=== PATIENT | female | born 1945 | race Caucasian/White ===

== ENCOUNTER → 2017-01-28 | Outpatient (CLI) | payer OTHER, BC ==
[~2017-01-28] MED LIST: ACT/35 PO; ALBU1AER9 INH; BECL0.3A INH; CIPR1TAB10 PO; DOCU100C31 PO; HYDR200T5 PO; MELO7.5T5 PO; METO25TA56 PO; MULT-506 PO; OXYC1TAB3 PO; PRLSR20 PO; PROM25TA9 PO; VOLTAREN GEL TOP
== END | disposition home or self-care (01) ==
LOC: C.LABPVFM 15:13
PROVIDERS: ATTEND Family Medicine
DX: R19.7 Diarrhea, unspecified (principal)

== ENCOUNTER → 2017-11-04 | Outpatient (CLI) | payer OTHER, BC ==
[~2017-11-04] MED LIST changes: -CIPR1TAB10 PO; -OXYC1TAB3 PO; -PROM25TA9 PO
--- NOTE | 2017-11-05 15:30 | MAMMOGRAPHY REPORT ---
BILATERAL DIGITAL SCREENING MAMMOGRAM TOMOSYNTHESIS WITH CAD: 11/04/2017 CLINICAL HISTORY: Routine screening. Patient has no complaints. TECHNIQUE: Breast tomosynthesis in addition to standard 2D mammography was performed. Current study was also evaluated with a Computer Aided Detection (CAD) system. COMPARISON: Comparison is made to exams dated: 02/12/2013 mammogram, 11/05/2011 mammogram - [facility], 04/04/2009, 05/19/2007, 11/06/2006, and 11/06/2006. BREAST COMPOSITION: The tissue of both breasts is almost entirely fatty. FINDINGS: No suspicious mass, architectural distortion or cluster of microcalcifications is seen. T here is stable asymmetry in the medial left breast. Minimal vascular calcification bilaterally. IMPRESSION: ACR BI-RADS CATEGORY 1: NEGATIVE There is no mammographic evidence of malignancy. A 1 year screening mammogram is recommended. The pa tient will receive written notification of the results. Approximately 10% of breast cancers are not detected with mammography. A negative mammographic report should not delay biopsy if a clinically suggestive mass is present. Amisha Russo M.D. ay/:11/04/2017 14:41:25 Pharmacy Consultant: Bozena GUPTA)([place]), [facility] letter sent: Normal 1/2 BI-RADS Code: ACR BI-RADS Category 1: Negative
== END | disposition home or self-care (01) ==
LOC: C.MAMM 13:36
PROVIDERS: ATTEND Family Medicine
DX: Z12.31 Encounter for screening mammogram for malignant neoplasm of breast (principal)

== ENCOUNTER → 2018-02-09 | Outpatient (CLI) | payer OTHER, BC | END | disposition home or self-care (01) | LOC: C.RDSM 16:50 | PROVIDERS: ATTEND Family Medicine Sports Medicine | DX: M79.641 Pain in right hand (principal) ==

== ENCOUNTER → 2018-02-11 | Outpatient (CLI) | payer OTHER, BC ==
[2018-02-12 07:26] LABS: HEMOGLOBIN A1C 4.9 % (4.5-5.6)
== END | disposition home or self-care (01) ==
LOC: C.LABPVFM 09:58
PROVIDERS: ATTEND Family Medicine
DX: E78.00 Pure hypercholesterolemia, unspecified (principal); R73.01 Impaired fasting glucose

== ENCOUNTER → 2018-05-27 | Outpatient (CLI) | payer OTHER, BC ==
[~2018-05-27] MED LIST changes: -ACT/35 PO; +ALBU18002; -ALBU1AER9 INH; -BECL0.3A INH; +CALC500C70 PO; +DNSIS60 SQ; -DOCU100C31 PO; +FOLI1TAB8 PO; -HYDR200T5 PO; +METH1INJ SQ; -PRLSR20 PO; +VNTHFA/IN INH; -VOLTAREN GEL TOP; +[UNRECOGNIZED DRUG - CODE]
[2018-05-27 12:58] LABS: BASO % 0.4 %; BASO ABS # 0.02 K/uL (0-0.2); EOS % 10.2 %; EOS ABS # 0.57 K/uL (0-0.5); HEMATOCRIT 41.2 % (37-47); HEMOGLOBIN 13.9 g/dL (12.0-16.0); IG# 0.02 K/uL (0.00-0.02); LYMPH % 10.9 %; LYMPH ABS # 0.61 K/uL (1.2-3.4); MEAN CELL VOLUME 93.6 fL (80-100); MEAN CORPUSCULAR HEMOGLOBIN 31.6 pg (25-34); MEAN CORPUSCULAR HGB CONC 33.7 g/dl (32-36); MEAN PLATELET VOLUME 10.4 fL (7.4-10.4); MONO % 8.2 %; MONO ABS # 0.46 K/uL (0.11-0.59); NEUT % 69.9 %; NEUT ABS # 3.91 K/uL (1.4-6.5); PLATELET COUNT 160 K/uL (130-400); RED CELL DISTRIBUTION WIDTH CV 13.2 % (11.5-14.5); RED CELL DISTRIBUTION WIDTH SD 45.1 fL (36.4-46.3); WHITE BLOOD COUNT 5.59 K/uL (4.8-10.8)
[2018-05-27 13:33] LABS: ALBUMIN 3.7 gm/dl (3.4-5.0); ALKALINE PHOSPHATASE 57 U/L (45-117); ALT/SGPT 21 U/L (12-78); AST/SGOT 24 U/L (15-37); CREATININE 0.83 mg/dl (0.60-1.20); TOTAL PROTEIN 6.9 gm/dl (6.4-8.2)
== END | disposition home or self-care (01) ==
LOC: C.LABPVFM 09:27
PROVIDERS: ATTEND Internal Medicine
DX: M05.79 Rheumatoid arthritis with rheumatoid factor of multiple sites without organ or systems involvement (principal); Z79.899 Other long term (current) drug therapy; E55.9 Vitamin D deficiency, unspecified

== ENCOUNTER 2019-11-02 16:36 | Observation (INO) ==
[2019-11-02] MEDS ORDERED: NITROGLYCERIN SL 0.4 MG/TAB TAB SL STA (18:45)
[2019-11-02 19:06] LABS: Basophils # (auto) 0.02 K/uL (0-0.2); Basophils % (auto) 0.2 %; Eosinophils # (auto) 0.11 K/uL (0-0.5); Eosinophils % (auto) 0.9 %; Hemoglobin 15.4 g/dL (12.0-16.0); Immature Granulocytes # (auto) 0.09 K/uL (0.00-0.02); Immature Granulocytes % (auto) 0.7 %; Lymphocytes # (auto) 0.82 K/uL (1.2-3.4); Lymphocytes % (auto) 6.5 %; Mean Corpuscular Hemoglobin 32.1 pg (25-34); Mean Corpuscular Hgb Conc 32.8 g/dL (32-36); Mean Corpuscular Volume 97.9 fL (80-100); Mean Platelet Volume 10.1 fL (7.4-10.4); Monocytes % (auto) 4.7 %; Neutrophils # (auto) 11.06 K/uL (1.4-6.5); Platelet Count 224 K/uL (130-400); RDW Coefficient of Variation 13.9 % (11.5-14.5); RDW Standard Deviation 48.9 fL (36.4-46.3)
[2019-11-02 19:12] LABS: Alanine Aminotransferase 23 U/L (12-78); Albumin Level 3.9 gm/dl (3.4-5.0); Aspartate Aminotransferase 14 U/L (15-37); BUN Creatinine Ratio 22.1 (10-20); Blood Urea Nitrogen 20 mg/dl (7-18); Calcium 9.3 mg/dl (8.5-10.1); Carbon Dioxide 29 mmol/L (21-32); Chloride 105 mmol/L (98-107); Creatinine Clr Calc Pharmacy 55.7 ml/min; Est GFR (Non-African American) 64.7; Glucose 114 mg/dl (70-99); Lipase 54 U/L (73-393); Potassium 3.8 mmol/L (3.5-5.1); Sodium 139 mmol/L (136-145)
--- NOTE | 2019-11-02 19:14 | XRay Report ---
XR chest 1V portable CLINICAL HISTORY: Chest Pain COMPARISON STUDY: 11/02/2019 3:40 PM FINDINGS: Lungs are clear. Fixed hiatal hernia. Trace fluid left lateral costophrenic angle unchanged from the prior study IMPRESSION: Hiatal hernia. Trace fluid left base. No change from the prior study. ACT 112: Negative or not required by law. The above report was generated using voice recognition software. It may contain grammatical, syntax or spelling errors. Electronically signed by: Danyel Fuentes M.D. 11/02/2019 7:12 PM
[2019-11-02 19:15] LABS: D Dimer 740 ug/L FEU (0-500)
[2019-11-02 19:17] LABS: Albumin Globulin Ratio 0.9 (0.9-2); Alkaline Phosphatase 85 U/L (45-117); Bilirubin,Total 0.5 mg/dl (0.2-1); Globulin 4.2 gm/dl (2.5-4.0); Total Protein 8.1 gm/dl (6.4-8.2); Troponin I < 0.015 ng/ml (0-0.045)
[2019-11-02] MEDS ORDERED: OPTIRAY 320 125ml IV PRN (20:09)
--- NOTE | 2019-11-02 20:18 | CT Scan Report ---
CT angio chest PE protocol CT DOSE: 244.37 mGy.cm HISTORY: Chest pain PE TECHNIQUE: Multiaxial CT images of the chest were performed following the intravenous administration of contrast to evaluate the pulmonary arteries. Maximal intensity projection images were also obtaine d. A dose lowering technique was utilized adhering to the principles of ALARA. COMPARISON STUDY: 05/25/2015 FINDINGS: Pulmonary vasculature enhances appropriately. No filling defects. Thoracic aorta is normal in course and caliber. Large fixed hiatal hernia. Lungs are considered generally clear. IMPRESSION: 1. Lungs are clear. 2. No evidence for pulmonary embolus. 3. Large fixed hiatal hernia. ACT 112: Negative or not required by law. The above report was generated using voice recognition software. It may contain grammatical, syntax or spelling errors. Electronically signed by: Danyel Fuentes M.D. 11/02/2019 8:16 PM
[2019-11-02] MEDS ORDERED: KETOROLAC 30 MG/ML VIAL IV STA (20:56)
--- NOTE | 2019-11-02 23:01 | Emergency Department Note ---
Entered by Lashaun Faria acting as a scribe for History of Present Illness General Chief complaint: Chest Pain Stated complaint: CHEST PAIN, SOB, SHOULDER PAIN Time Seen by Provider: 11/02/19 18:10 History of Present Illness Provider complaint: chest pain Onset (ago): day(s) 3 Location: chest Pain Consistency: + intermittent Maximum Pain Intensity: 7 Exacerbated By: + movement and + other (lying flat, breathing deeply) Associated symptoms: + denies other symptoms (swelling in legs, recent long travel ), + diaphoresis and + other (pain started in left shoulder and then radiated into chest, has not slept in 3 days, ); no nausea/vomiting The patient is a 74 year old white female w/ PMHx of COPD, anemia, HTN, sciatica, RA, and hypercholesteremia who presents to the ED w/ CC of intermittent chest pain beginning 3 days ago. The patient states that her pain started in her left shoulder and then eventually radiated into her chest. The patient states that she has not slept in 3 days secondary to the discomfort. The patient states that her pain is exacerbated by movement, lying flat and taking a deep breath. The patient notes that she will also occasionally become diaphoretic. The patient denies nausea, vomiting, swelling in her legs and recent long travel. The patient notes that she is currently on Prednisone to treat 6 months worth of sciatica. Home Medications Home Medications Medication Instructions Recorded Confirmed Type methotrexate (PF) 1 dose SUBCUT WK 07/20/18 11/02/19 History multivitamin 1 tab PO DAILY 07/20/18 11/02/19 History denosumab 60 mg/mL subcutaneous 60 mg SQ .COMPLEX ml 05/29/19 11/02/19 History syringe meloxicam 15 mg tablet 15 mg PO DAILY #90 tab 06/01/19 11/02/19 Rx metoprolol tartrate 25 mg tablet 12.5 mg PO BID #180 tab 06/01/19 11/02/19 Rx amoxicillin 500 mg tablet 2,000 mg PO ONCE #4 tab 10/08/19 11/02/19 Rx albuterol sulfate 90 mcg/actuation See Rx Instructions .ROUTE 11/02/19 11/02/19 Rx aerosol inhaler .COMPLEX #8.5 gram cholecalciferol (vitamin D3) 4,000 4,000 units PO DAILY 11/02/19 11/02/19 History unit capsule methylprednisolone [Medrol] 8 mg PO .TAPER UD 11/02/19 11/02/19 History Allergies Allergy/AdvReac Type Severity Reaction Status Date / Time Bactrim Allergy Severe anaphylaxis Verified 05/21/18 06:39 Sulfa (Sulfonamide Allergy Severe anaphylaxis Verified 11/02/19 15:06 Antibiotics) sulfamethoxazole Allergy Severe anaphylaxis Verified 11/02/19 15:06 trimethoprim Allergy Severe anaphylaxis Verified 11/02/19 15:06 acetaminophen Allergy Mild GI Verified 11/02/19 15:06 SYMPTOMS AND DIZZINESS lactose Allergy Unknown gi upset Verified 11/02/19 15:06 with milk or milk products Past Med/Surg History Medical History Anemia Chronic obstructive pulmonary disease LAST RESCUE INHALER USED (LAST WEEK) Dry eye syndrome Hiatal hernia Hypercholesteremia (Acute) Hypertension Low back pain (Chronic) Osteoarthritis Rheumatoid arthritis Sciatica Surgical History H/O exploratory laparotomy INTESTINAL SURGERY ([address] 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 and A total of 10 systems reviewed and were otherwise negative Physical Exam Vital Signs Vital Signs - 24 hr 11/02/19 16:44 11/02/19 18:01 11/02/19 18:04 Temperature 37.0 C Temperature Source Oral Pulse Rate 103 H 81 Pulse Rate from SpO2 Sensor 81 Respiratory Rate 22 23 Blood Pressure 172/78 H Blood Pressure Mean 109 Blood Pressure Position Sitting Pulse Oximetry 99 98 98 Oxygen Delivery Method Room Air Room Air Sepsis Recent Fever Within 48 Hours No Sepsis New/Unexplained Change in Mental Status No Sepsis Action Taken by Nursing No Action Required 11/02/19 18:10 11/02/19 18:20 11/02/19 18:30 Temperature Temperature Source Pulse Rate 81 83 74 Pulse Rate from SpO2 Sensor 81 84 75 Respiratory Rate 23 15 19 Blood Pressure Blood Pressure Mean Blood Pressure Position Pulse Oximetry 98 97 98 Oxygen Delivery Method Sepsis Recent Fever Within 48 Hours Sepsis New/Unexplained Change in Mental Status Sepsis Action Taken by Nursing 11/02/19 18:40 11/02/19 18:50 11/02/19 18:57 Temperature Temperature Source Pulse Rate 81 85 80 Pulse Rate from SpO2 Sensor 82 81 Respiratory Rate 22 25 H Blood Pressure 185/83 H Blood Pressure Mean 104 Blood Pressure Position Pulse Oximetry 98 97 100 Oxygen Delivery Method Room Air Sepsis Recent Fever Within 48 Hours Sepsis New/Unexplained Change in Mental Status Sepsis Action Taken by Nursing 11/02/19 19:00 11/02/19 19:01 11/02/19 19:10 Temperature Temperature Source Pulse Rate 98 H 90 84 Pulse Rate from SpO2 Sensor 97 H 90 83 Respiratory Rate 20 22 20 Blood Pressure 138/85 Blood Pressure Mean 92 Blood Pressure Position Pulse Oximetry 98 97 98 Oxygen Delivery Method Sepsis Recent Fever Within 48 Hours Sepsis New/Unexplained Change in Mental Status Sepsis Action Taken by Nursing 11/02/19 19:15 11/02/19 19:20 11/02/19 19:30 Temperature Temperature Source Pulse Rate 78 77 77 Pulse Rate from SpO2 Sensor 78 81 77 Respiratory Rate 21 21 20 Blood Pressure 155/88 H 151/82 H Blood Pressure Mean 111 101 Blood Pressure Position Pulse Oximetry 100 97 98 Oxygen Delivery Method Sepsis Recent Fever Within 48 Hours Sepsis New/Unexplained Change in Mental Status Sepsis Action Taken by Nursing 11/02/19 19:31 11/02/19 19:40 11/02/19 19:46 Temperature Temperature Source Pulse Rate 77 74 76 Pulse Rate from SpO2 Sensor 79 74 76 Respiratory Rate 17 19 21 Blood Pressure 152/74 H Blood Pressure Mean 89 Blood Pressure Position Pulse Oximetry 99 99 99 Oxygen Delivery Method Sepsis Recent Fever Within 48 Hours Sepsis New/Unexplained Change in Mental Status Sepsis Action Taken by Nursing 11/02/19 19:50 11/02/19 20:13 11/02/19 20:30 Temperature Temperature Source Pulse Rate 73 76 75 Pulse Rate from SpO2 Sensor 72 75 Respiratory Rate 17 21 18 Blood Pressure 167/89 H Blood Pressure Mean 128 Blood Pressure Position Pulse Oximetry 100 100 Oxygen Delivery Method Sepsis Recent Fever Within 48 Hours Sepsis New/Unexplained Change in Mental Status Sepsis Action Taken by Nursing 11/02/19 21:00 11/02/19 21:14 11/02/19 21:20 Temperature Temperature Source Pulse Rate 75 80 77 Pulse Rate from SpO2 Sensor Respiratory Rate 19 18 16 Blood Pressure 162/91 H Blood Pressure Mean 114 Blood Pressure Position Pulse Oximetry 98 Oxygen Delivery Method Sepsis Recent Fever Within 48 Hours Sepsis New/Unexplained Change in Mental Status Sepsis Action Taken by Nursing 11/02/19 21:30 11/02/19 21:40 11/02/19 21:50 Temperature Temperature Source Pulse Rate 73 72 74 Pulse Rate from SpO2 Sensor 73 74 Respiratory Rate 14 16 16 Blood Pressure Blood Pressure Mean Blood Pressure Position Pulse Oximetry 98 98 Oxygen Delivery Method Sepsis Recent Fever Within 48 Hours Sepsis New/Unexplained Change in Mental Status Sepsis Action Taken by Nursing 11/02/19 22:00 11/02/19 22:01 11/02/19 22:02 Temperature Temperature Source Pulse Rate 72 72 76 Pulse Rate from SpO2 Sensor Respiratory Rate 21 22 19 Blood Pressure 175/87 H Blood Pressure Mean 103 Blood Pressure Position Pulse Oximetry 98 Oxygen Delivery Method Sepsis Recent Fever Within 48 Hours Sepsis New/Unexplained Change in Mental Status Sepsis Action Taken by Nursing 11/02/19 22:10 11/02/19 22:20 11/02/19 22:30 Temperature Temperature Source Pulse Rate 86 74 75 Pulse Rate from SpO2 Sensor Respiratory Rate 20 24 21 Blood Pressure Blood Pressure Mean Blood Pressure Position Pulse Oximetry Oxygen Delivery Method Sepsis Recent Fever Within 48 Hours Sepsis New/Unexplained Change in Mental Status Sepsis Action Taken by Nursing 11/02/19 22:31 11/02/19 22:40 11/02/19 22:50 Temperature Temperature Source Pulse Rate 75 74 77 Pulse Rate from SpO2 Sensor Respiratory Rate 23 19 16 Blood Pressure 193/93 H Blood Pressure Mean 152 Blood Pressure Position Pulse Oximetry 98 Oxygen Delivery Method Sepsis Recent Fever Within 48 Hours Sepsis New/Unexplained Change in Mental Status Sepsis Action Taken by Nursing 11/02/19 22:57 Temperature Temperature Source Pulse Rate Pulse Rate from SpO2 Sensor Respiratory Rate Blood Pressure Blood Pressure Mean Blood Pressure Position Pulse Oximetry Oxygen Delivery Method Room Air Sepsis Recent Fever Within 48 Hours Sepsis New/Unexplained Change in Mental Status Sepsis Action Taken by Nursing GENERAL: Well appearing, well nourished, NAD, non-toxic. EYE EXAM: Normal conjunctiva. PERRL, no anisocoria and EOM's grossly intact w/o pain. OROPHARYNX: Moist mucous membranes. Grossly normal dentition. NECK: Supple, no nuchal rigidity, no adenopathy, non-tender. No signs of men ingismus. CHEST: Reproducible left chest wall pain. LUNGS: Clear to auscultation. Normal chest wall mechanics. HEART: NSR, no MRG. ABDOMEN: Abdomen soft, non-tender, normo-active bowel sounds, no masses, no rebound or guarding. SKIN: No rashes and no bruising. UPPER EXTREMITIES: Upper extremities are grossly normal. LOWER EXTREMITIES: Negative Homans sign. No pitting edema. No calf pain. NEURO EXAM: A&O x3, cranial nerves II-XII grossly intact, normal speech, moves all 4 extremities on command w/o issue. Course Course 1822: Past medical records reviewed. The patient was seen by PCP today and was referred here for EKG changes and chest pain. The patient received 4 Aspirin en route. The patient was evaluated in room A11B. A complete history and physical exam was performed. 1830: The patient was put on a phototypesetting equipment monitor at this time. 1940: I updated the patient and informed her as to why were are going to do a CTA. The patient states that the Nitroglycerin did not help her pain. The patient states that she still had a headache but she does not want any medication for it. 2051: I updated the patient on the plan for admission. She verbally agrees and understands. 2154: I discussed the patient's case with Dr. Hernandez [facility], Hospitalist. He will evaluate the patient for further management. Consultations Consultation #1: I discussed the patient's case with Dr. Hernandez [facility], Hospitalist. He will evaluate the patient for further management. Time: 21:55 Administered Medications Ioversol (Optiray 320 125ml) 118 ml IV ONCE PRN PRN Reason: Interaction Checking Stop: 11/06/19 20:08 Last Admin: 11/02/19 20:09 Dose: 118 ml Documented by: [id number] Discontinued Medications Ketorolac Tromethamine (Toradol) 30 mg IV NOW STA Stop: 11/02/19 20:57 Last Admin: 01/07/20 21:01 Dose: 30 mg Documented by: [id number] Nitroglycerin (Nitrostat) 0.4 mg SL NOW STA Stop: 11/02/19 18:46 Last Admin: 11/02/19 18:57 Dose: 0.4 mg Documented by: [id number] Medical Decision Making Differential Diagnosis Differential diagnosis: Etiologies such as shingles, musculoskeletal pain, pericarditis, myocarditis, cardiac ischemia, pericardial tamponade, pneumonia, pneumothorax, pleural effusion, hemothorax, pleurisy, aortic pathology, pulmonary embolism, intra- abdominal process, as well as others were considered. Medical Records Attestation: I reviewed the patient's medical records. Home Medications Current Medication List: was personally reviewed by me Laboratory Data Attestation: I reviewed the patient's lab results. Result diagrams: 11/02/19 18:05 11/02/19 18:05 Lab Results 11/02/19 11/02/19 11/02/19 Range/Units 18:05 18:05 18:05 WBC 12.70 H (4.8-10.8) K/uL RBC 4.80 (4.2-5.4) M/uL Hgb 15.4 (12.0-16.0) g/dL Hct 47.0 (37-47) % MCV 97.9 (80-100) fL MCH 32.1 (25-34) pg MCHC 32.8 (32-36) g/dL RDW Std Deviation 48.9 H (36.4-46.3) fL RDW Coeff of Stephanie 13.9 (11.5-14.5) % Plt Count 224 (130-400) K/uL MPV 10.1 (7.4-10.4) fL Immature Gran % (Auto) 0.7 % Neut % (Auto) 87.0 % Lymph % (Auto) 6.5 % Bureau % (Auto) 4.7 % Eos % (Auto) 0.9 % Baso % (Auto) 0.2 % Immature Gran # (Auto) 0.09 H (0.00-0.02) K/uL Neut # (Auto) 11.06 H (1.4-6.5) K/uL Lymph # (Auto) 0.82 L (1.2-3.4) K/uL Bureau # (Auto) 0.60 H (0.11-0.59) K/uL Eos # (Auto) 0.11 (0-0.5) K/uL Baso # (Auto) 0.02 (0-0.2) K/uL D-Dimer 740 H* (0-500) ug/L FEU Sodium 139 (136-145) mmol/L Potassium 3.8 (3.5-5.1) mmol/L Chloride 105 (98-107) mmol/L Carbon Dioxide 29 (21-32) mmol/L Anion Gap 5.0 (3-11) BUN 20 H (7-18) mg/dl Creatinine 0.89 (0.6-1.2) mg/dl Est Cr Clr Drug Dosing 55.7 ml/min Est GFR ( Amer) 75.0 Est GFR (Non-Af Amer) 64.7 BUN/Creatinine Ratio 22.1 H (10-20) Glucose 114 H (70-99) mg/dl Calcium 9.3 (8.5-10.1) mg/dl Total Bilirubin 0.5 (0.2-1) mg/dl AST 14 L (15-37) U/L ALT 23 (12-78) U/L Alkaline Phosphatase 85 (45-117) U/L Troponin I < 0.015 (0-0.045) ng/ml Total Protein 8.1 (6.4-8.2) gm/dl Albumin 3.9 (3.4-5.0) gm/dl Globulin 4.2 H (2.5-4.0) gm/dl Albumin/Globulin Ratio 0.9 (0.9-2) Lipase 54 L (73-393) U/L Imaging Data Radiologist's Impression: Radiology results as stated below per my review and the radiologist's interpretation: XR chest 1V portable CLINICAL HISTORY: Chest Pain COMPARISON STUDY: 11/02/2019 3:40 PM FINDINGS: Lungs are clear. Fixed hiatal hernia. Trace fluid left lateral costophrenic angle unchanged from the prior study IMPRESSION: Hiatal hernia. Trace fluid left base. No change from the prior study. ACT 112: Negative or not required by law. The above report was generated using voice recognition software. It may contain grammatical, syntax or spelling errors. Electronically signed by: Danyel Fuentes M.D. 11/02/2019 7:[address] angio chest PE protocol CT DOSE: 244.37 mGy.cm HISTORY: Chest pain PE TECHNIQUE: Multiaxial CT images of the chest were performed following the intravenous administration of contrast to evaluate the pulmonary arteries. Maximal intensity projection images were also obtained. A dose lowering technique was utilized adhering to the principles of ALARA. COMPARISON STUDY: 05/25/2015 FINDINGS: Pulmonary vasculature enhances appropriately. No filling defects. Thoracic aorta is normal in course and caliber. Large fixed hiatal hernia. Lungs are considered generally clear. IMPRESSION: 1. Lungs are clear. 2. No evidence for pulmonary embolus. 3. Large fixed hiatal hernia. ACT 112: Negative or not required by law. The above report was generated using voice recognition software. It may contain grammatical, syntax or spelling errors. Electronically signed by: Danyel Fuentes M.D. 11/02/2019 8:16 PM OUTPATIENT CHEST X-RAY DONE PRIOR TO ARRIVAL: XR chest 2V PA/lateral CLINICAL HISTORY: 74 years-old Female presenting with R07.9 Chest pain, unspecified. TECHNIQUE: PA and lateral views of the chest were obtained. COMPARISON: 08/29/2016. FINDINGS: Cardiomediastinal silhouette normal. Lungs and pleural spaces clear. Degenerative changes of the thoracic spine. Large hiatal hernia. Chronic blunting of the costophrenic sulci on the left. Cholecystectomy clips noted. IMPRESSION: 1. No acute cardiopulmonary disease. 2. Large hiatal hernia. ACT 112: Negative or not required by law. Electronically signed by: Paulo Mayo M.D. 11/02/2019 3:57 PM ECG Data Attestation: I personally reviewed and interpreted this ECG as follows: Indication: + chest pain Rate (beats per minute): 98 Rhythm: + normal sinus ECG Intervals/blocks: + Normal QRS, + Normal MO and + Normal QT-c ECG [place]: + Normal ECG ST segments: no ST depression and no ST elevation ECG Findings: no PACs and no PVCs Blood Pressure Blood Pressure Findings: Elevated blood pressure Blood Pressure Disposition: further management by hospitalist STACEY Guaman The patient is a 74 year old white female w/ PMHx of COPD, anemia, HTN, sciatica, RA, and hypercholesteremia who presents to the ED w/ CC of intermittent chest pain beginning 3 days ago. Patient was seen in eval at the bedside. The patient did present as a referral from outpatient clinic due to concern for possible EKG changes. I did review the EKG and does not look overall very impressive but a repeat EKG was completed which looks fairly unremarkable. Patient's troponin is nondetectable. Patient did have a chest x-ray completed that shows a hiatal hernia. D-dimer was checked and given the pleuritic nature and the fact that is left-sided around the arm neck and jaw. Patient CT angios only shows a hiatal hernia but no evidence of PE. No evidence of aneurysm or dissection or pericardial effusion. Patient does have moderate risk heart score as it her heart score is greater than 4. This may simply be related to the patient's hiatal hernia but given the moderately suspicious story I believe she would benefit from further observation and treatment. I did speak the on-call hospitalist agreed to further evaluate treat the patient. Patient was subsequently admitted to the medicine service. Impression & Plan Chest pain, Hiatal hernia Discharge Plan Visit Data Chief Complaint: Chest Pain Stated Complaint: CHEST PAIN, SOB, SHOULDER PAIN ED Provider: Chris Fernandez Discharge Problem: Chest pain, Hiatal hernia Patient Disposition: Being Evaluated by Hospitalist Discharge Instructions Interventions: ED Discharge Assessment Last Done: 11/02/19 22:57 Forms Stand Alone Forms: Call Back Authorization, [facility] Prescriptions Prescriptions: No Action amoxicillin 500 mg tablet 2,000 mg PO ONCE Qty: 4 RF: 2 albuterol sulfate [ProAir HFA] 90 mcg/actuation HFA aerosol inhaler See Rx Instructions .ROUTE .COMPLEX Qty: 8.5 RF: 1 Prolia 60 mg/mL syringe 60 mg SQ .COMPLEX RF: 0 meloxicam [Mobic] 15 mg tablet 15 mg PO DAILY Qty: 90 RF: 1 metoprolol tartrate 25 mg tablet 12.5 mg PO BID Qty: 180 RF: 1 cholecalciferol (vitamin D3) 4,000 unit capsule 4,000 units PO DAILY RF: 0 multivitamin Tablet 1 tab PO DAILY RF: 0 methotrexate (PF) 10 mg/0.2 mL Auto-Injector 1 dose subcut WK RF: 0 methylprednisolone [Medrol] 8 mg tablet 8 mg PO .TAPER UD RF: 0 Referrals Referrals: Joycelyn Daniels MD [Primary Care Provider] - Discharge Problem: Chest pain Qualifiers: Chest pain type: unspecified Qualified Code(s): R07.9 - Chest pain, unspecified The scribe's documentation has been prepared under my direction and personally reviewed by me in its entirety. I confirm that the note above accurately reflects all work, treatment, procedures, and medical decision making performed by me.
--- NOTE | 2019-11-02 23:03 | History & Physical Report ---
Date of Service November 02, 2019 Assessment & Plan (1) Chest pain: 75-year-old female with a history of hiatal hernia, osteoporosis, rheumatoid arthritis, hypertension presents with chest pain. Chest pain is pleuritic in nature and worse with palpation left of the sternum in the intercostal spaces. Cardiac evaluation thus far has been negative. Labs are unremarkable except for a mild leukocytosis in setting of chronic steroid use. She was also found to have a d-dimer of 740. CTA was completed which was negative for PE. Chest pain Pleuritic, positional and palpable. Low suspicion for ACS based on history and exam. Continue to trend troponin, repeat EKG for further chest pain Toradol every 6 for pain, heat and ice Continue aspirin Patient is concerned of progression of hiatal hernia. CT showed large fixed hiatal hernia. Recommend outpatient follow-up with her surgeon Hypertension Continue metoprolol RA Was supposed to receive her methotrexate this evening, patient likely to be discharged tomorrow, will self-administered tomorrow Patient at the end of steroid tapercontinue methyl prednisolone 4 mg daily Osteoporosis Receives Prolia injections monthly CODE STATUS Full code DVT prophylaxis SCD/ambulation Diet Heart healthy (2) Hiatal hernia: (3) Sciatica: (4) Shoulder pain: (5) Nonspecific ST-T wave electrocardiographic changes: (6) Cervicalgia: (7) Hypertension: (8) Rheumatoid arthritis: History of Present Illness Primary Care Provider: Joycelyn Daniels MD 75-year-old female with a history of hiatal hernia, osteoporosis, rheumatoid arthritis, hypertension presents with chest pain. She states that the pain began approximately 3 days ago, initially has pain in her left shoulder that began to migrate to her chest. She states that the pain is also extending into her back. The pain is worse with deep inspiration. She can palpate the pain, just left to her sternum. She also states that she can feel the pain worse with movements. She was mostly concerned because she was also having dyspnea with exertion. She denies any hemoptysis. She denies any nausea, vomiting or diarrhea. She denies any upper respiratory symptoms. Patient describes having a family history of congestive heart failure in her mother and father. She smoked briefly as a teenager. No history of diabetes. Allergies Allergy/AdvReac Type Severity Reaction Status Date / Time Bactrim Allergy Severe anaphylaxis Verified 07/26/18 06:39 Sulfa (Sulfonamide Allergy Severe anaphylaxis Verified 11/02/19 15:06 Antibiotics) sulfamethoxazole Allergy Severe anaphylaxis Verified 11/02/19 15:06 trimethoprim Allergy Severe anaphylaxis Verified 11/02/19 15:06 acetaminophen Allergy Mild GI Verified 11/02/19 15:06 SYMPTOMS AND DIZZINESS lactose Allergy Unknown gi upset Verified 11/02/19 15:06 with milk or milk products Home Medications Home Medications Medication Instructions Recorded Confirmed Type methotrexate (PF) 1 dose SUBCUT WK 07/20/18 11/02/19 History multivitamin 1 tab PO DAILY 07/20/18 11/02/19 History denosumab 60 mg/mL subcutaneous 60 mg SQ .COMPLEX ml 05/29/19 11/02/19 History syringe meloxicam 15 mg tablet 15 mg PO DAILY #90 tab 06/01/19 11/02/19 Rx metoprolol tartrate 25 mg tablet 12.5 mg PO BID #180 tab 06/01/19 11/02/19 Rx amoxicillin 500 mg tablet 2,000 mg PO ONCE #4 tab 10/08/19 11/02/19 Rx albuterol sulfate 90 mcg/actuation See Rx Instructions .ROUTE 11/02/19 11/02/19 Rx aerosol inhaler .COMPLEX #8.5 gram cholecalciferol (vitamin D3) 4,000 4,000 units PO DAILY 11/02/19 11/02/19 History unit capsule methylprednisolone [Medrol] 8 mg PO .TAPER UD 11/02/19 11/02/19 History ketorolac 10 mg PO Q8H 3 Days #9 tab 11/03/19 Rx Past Med/Surg History Medical History Anemia Chronic obstructive pulmonary disease LAST RESCUE INHALER USED (LAST WEEK) Dry eye syndrome Hiatal hernia Hypercholesteremia (Acute) Hypertension Low back pain (Chronic) Osteoarthritis Rheumatoid arthritis Sciatica Surgical History H/O exploratory laparotomy INTESTINAL SURGERY ([address] 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: No Beliefs That Will Affect Care: None Current Living Situation: Spouse Feels Safe at Home: Yes Smoking Status: Former smoker Second Hand Exposure: No ; Hx Alcohol Use: No Hx Substance Use: No Review of Systems Review of Systems: Constitutional; no fevers, chills, night sweats HEENT; denies runny nose, sore throat, sinus congestion Pulmonary; reports having shortness of breath with exertion, denies cough, denies wheezing CV; chest pain as described above Abdomen; denies abdominal pain, nausea/vomiting/diarrhea Physical Exam Constitutional: WD/WN, vitals as above Eyes: PERRL, conjunctivae normal, anicteric sclerae ENMT: external ear and nose normal, oropharynx normal Neck: trachea midline, no thyromegaly Respiratory: normal respiratory effort, lungs clear to auscultation Cardiovascular: RRR, no murmur, no edema Tenderness with palpation left of the sternum, tenderness palpation of the left shoulder Gastrointestinal (Abdomen): normal bowel sounds, soft, nontender, no hepatospl enomegaly Musculoskeletal: no cyanosis or clubbing, extremities motor strength 5/5 Skin: no rashes, warm and dry Neurologic: PERRL, EOMI, accommodation nl, no face palsy, no dysarthria Psychiatric: A+Ox3, euthymic affect Results & Data Vital Signs (Past 12 Hours) Vital Signs Temp Pulse Resp BP Pulse Ox 11/02/19 22:01 72 22 175/87 H 98 11/02/19 22:00 72 21 11/02/19 21:50 74 16 98 11/02/19 21:40 72 16 98 11/02/19 21:30 73 14 11/02/19 21:20 77 16 11/02/19 21:14 80 18 11/02/19 21:00 75 19 162/91 H 98 11/02/19 20:30 75 18 167/89 H 100 11/02/19 20:13 76 21 11/02/19 19:50 73 17 100 11/02/19 19:46 76 21 152/74 H 99 11/02/19 19:40 74 19 99 11/02/19 19:31 77 17 99 11/02/19 19:30 77 20 151/82 H 98 11/02/19 19:20 77 21 97 11/02/19 19:15 78 21 155/88 H 100 11/02/19 19:10 84 20 98 11/02/19 19:01 90 22 97 11/02/19 19:00 98 H 20 138/85 98 11/02/19 18:57 80 25 H 185/83 H 100 11/02/19 18:50 85 97 11/02/19 18:40 81 22 98 11/02/19 18:30 74 19 98 11/02/19 18:20 83 15 97 11/02/19 18:10 81 23 98 11/02/19 18:04 81 23 98 11/02/19 18:01 98 11/02/19 16:44 37.0 C 103 H 22 172/78 H 99 Code Status & VTE Plan VTE Prophylaxis Plan VTE Prophylaxis will be ordered: Yes Supervising Physician Co-Signing Physician Notes Attending addendum: I have physically seen this patient, have supervised the medical residents activities, and agree with the H&P unless as otherwise noted. Assessment and Plan: Chest pain of uncertain etiology/hypertension- The patient will be admitted to telemetry for serial cardiac enzymes, serial EKG's, cardiac rhythm monitoring and a 2-D echocardiogram with Dopplers. Continue aspirin and metoprolol. Pain may be secondary to large hiatal hernia. If cardiac work-up is negative, should consider closer GI and/or surgical follow-up. Remainder of orders and notations as noted. Resident Activity Tracking Resident Involvement: Resident Care Provided Care Provided: Adult Hospital Medicine (1) Chest pain Chest pain type: unspecified Qualified Code(s): R07.9 - Chest pain, unspecified
[2019-11-02] MEDS ORDERED: POLYETHYLENE (MIRALAX) 17 GM PACK PO PRN (23:27)
[2019-11-02] MEDS ORDERED: KETOROLAC TROMETHAMINE 15 MG/ML VIAL IV PRN (23:27)
[2019-11-02] MEDS ORDERED: ONDANSETRON INJ 2 MG/ML 2 ML VIAL IV PRN (23:27)
[2019-11-02 23:54] LABS: Basophils # (auto) 0.02 K/uL (0-0.2); Basophils % (auto) 0.2 %; Eosinophils # (auto) 0.06 K/uL (0-0.5); Eosinophils % (auto) 0.5 %; Hematocrit (blood only) 41.5 % (37-47); Hemoglobin 13.8 g/dL (12.0-16.0); Immature Granulocytes # (auto) 0.09 K/uL (0.00-0.02); Immature Granulocytes % (auto) 0.7 %; Lymphocytes # (auto) 0.89 K/uL (1.2-3.4); Lymphocytes % (auto) 7.1 %; Mean Corpuscular Hemoglobin 31.7 pg (25-34); Mean Corpuscular Hgb Conc 33.3 g/dL (32-36); Mean Corpuscular Volume 95.2 fL (80-100); Mean Platelet Volume 9.4 fL (7.4-10.4); Monocytes # (auto) 0.55 K/uL (0.11-0.59); Monocytes % (auto) 4.4 %; Neutrophils # (auto) 10.92 K/uL (1.4-6.5); Neutrophils % (auto) 87.1 %; Platelet Count 190 K/uL (130-400); RDW Coefficient of Variation 13.8 % (11.5-14.5); RDW Standard Deviation 47.2 fL (36.4-46.3); Red Blood Count 4.36 M/uL (4.2-5.4); White Blood Count 12.53 K/uL (4.8-10.8)
[2019-11-03 00:13] LABS: Blood Urea Nitrogen 16 mg/dl (7-18); Calcium 8.7 mg/dl (8.5-10.1); Carbon Dioxide 27 mmol/L (21-32); Chloride 107 mmol/L (98-107); Creatinine Clr Calc Pharmacy 71.3 ml/min; Est GFR (African American) 98.6; Est GFR (Non-African American) 85.1; Glucose 126 mg/dl (70-99); Potassium 3.9 mmol/L (3.5-5.1); Sodium 138 mmol/L (136-145)
[2019-11-03 00:18] LABS: Troponin I < 0.015 ng/ml (0-0.045)
[2019-11-03 07:11] LABS: Basophils # (auto) 0.03 K/uL (0-0.2); Basophils % (auto) 0.4 %; Eosinophils # (auto) 0.14 K/uL (0-0.5); Eosinophils % (auto) 1.6 %; Hematocrit (blood only) 39.6 % (37-47); Immature Granulocytes # (auto) 0.04 K/uL (0.00-0.02); Immature Granulocytes % (auto) 0.5 %; Lymphocytes # (auto) 0.74 K/uL (1.2-3.4); Lymphocytes % (auto) 8.7 %; Mean Corpuscular Hemoglobin 31.6 pg (25-34); Mean Corpuscular Hgb Conc 32.8 g/dL (32-36); Mean Corpuscular Volume 96.1 fL (80-100); Mean Platelet Volume 9.4 fL (7.4-10.4); Monocytes # (auto) 0.46 K/uL (0.11-0.59); Monocytes % (auto) 5.4 %; Neutrophils # (auto) 7.14 K/uL (1.4-6.5); Neutrophils % (auto) 83.4 %; Platelet Count 170 K/uL (130-400); RDW Coefficient of Variation 13.7 % (11.5-14.5); Red Blood Count 4.12 M/uL (4.2-5.4); White Blood Count 8.55 K/uL (4.8-10.8)
[2019-11-03 07:43] LABS: BUN Creatinine Ratio 22.1 (10-20); Calcium 8.7 mg/dl (8.5-10.1); Creatinine Clr Calc Pharmacy 71.3 ml/min; Est GFR (African American) 98.6; Est GFR (Non-African American) 85.1; Potassium 3.8 mmol/L (3.5-5.1)
[2019-11-03] MEDS ORDERED: methylPREDNISolone 4 MG TAB PO SCH (09:00)
[2019-11-03] MEDS ORDERED: METOPROLOL TARTRATE 25 MG TAB PO SCH (09:00)
--- NOTE | 2019-11-03 09:45 | Discharge Summary ---
Date of Service November 03, 2019 Admission HPI Per Admitting Provider 75-year-old female with a history of hiatal hernia, osteoporosis, rheumatoid arthritis, hypertension presents with chest pain. She states that the pain began approximately 3 days ago, initially has pain in her left shoulder that began to migrate to her chest. She states that the pain is also extending into her back. The pain is worse with deep inspiration. She can palpate the pain, just left to her sternum. She also states that she can feel the pain worse with movements. She was mostly concerned because she was also having dyspnea with exertion. She denies any hemoptysis. She denies any nausea, vomiting or diarrhea. She denies any upper respiratory symptoms. Patient describes having a family history of congestive heart failure in her mother and father. She smoked briefly as a teenager. No history of diabetes. Principal Diagnosis Pt has not had further chest pain since admission. She states that her L sided neck and shoulder pain were greatly improved with the toradol and since that time she has had no further chest pain. She was able to lie flat and take deep breaths without nathaniel. Pt denies fever, SOB, abd pain, n/v/c/d, LE pain or swelli ng. Discharge Exam Constitutional WD/WN, vitals as above Eyes normal visual harvey by confrontation and + anicteric sclerae Neck normal visual inspection and trachea midline Respiratory normal respiratory effort, lungs clear to auscultation Cardiovascular Rate/Rhythm: regular rate and regular rhythm Gastrointestinal (Abdomen) Inspection/Auscultation: abdomen not distended Percussion/Palpation: abdomen soft; abdomen nontender Musculoskeletal Head/Neck/Chest: normocephalic and head atraumatic L>>R trap and c-spine paraspinal spasms noted with TTP Skin no rashes, warm and dry Neurologic awake; not confused Speech / Cognition: normal speech Psychiatric A+Ox3, euthymic affect Discharge Data Allergies Allergy/AdvReac Type Severity Reaction Status Date / Time Bactrim Allergy Severe anaphylaxis Verified 05/21/18 06:39 Sulfa (Sulfonamide Allergy Severe anaphylaxis Verified 11/02/19 15:06 Antibiotics) sulfamethoxazole Allergy Severe anaphylaxis Verified 11/02/19 15:06 trimethoprim Allergy Severe anaphylaxis Verified 11/02/19 15:06 acetaminophen Allergy Mild GI Verified 11/02/19 15:06 SYMPTOMS AND DIZZINESS lactose Allergy Unknown gi upset Verified 11/02/19 15:06 with milk or milk products Consultations 11/02/19 20:56 ED Decision to Admit Stat 11/02/19 23:27 Consult Case Management - Discharge Planning Routine Ordered Studies 11/02/19 19:25 CT angio chest PE protocol Stat Hospital Course (1) Chest pain: Has improved with improved neck pain Trop neg x4 EKG NSR No tele events overnight CBC, PRP WNL CXR shows hiatal hernia Ddimer + with CTA neg for PE or other lung path, noted for large fixed hiatal hernia Seems likely related to MSK vs hiatal hernia vs pleuritic pain NOS Advised to f/u with Dr. Epps if ongoing issues if there is further concern for hiatal hernia etiology (2) Hiatal hernia: As above Pt states OR x3 for this same issue (3) Cervicalgia: Advised MT vs chiro vs acupuncture Epson salt soaks Short course of toradol as this relieved pt's pain during admission (4) Hypercholesteremia: continue home meds (5) Hypertension: continue home meds (6) Rheumatoid arthritis: continue home meds Total Time Total Time Spent Total Time Spent (In Minutes): >30 Total Time Includes: Examination of the Patient, Discharge Planning, Medication Reconciliation and Other Discharge Plan Discharge Items Patient Disposition: Home - Self-Care Reason For Visit: CHEST PAIN Discharge Diagnosis: chest pain, non-cardiac Activity: Resume your previous activity Non-emergency contact: Primary Care Provider and Surgeon Call non-emergency contact if: you have any medication questions, your symptoms worsen, your pain is not controlled and your pain is worsening Follow-up/Referrals: Joycelyn Daniels MD [Primary Care Provider] - Diet: Regular Addtl Attending Provider Instructions: The chest pain you were having may be coming from your hiatal hernia. If it continues, you should follow up with Dr. Epps. This chest pain may also be coming from your neck given your chest pain improved with improved neck pain. There are many different options to help with the tightness and stiffness in your neck such as Epsom salt soaks, massage, chiropractic, and acupuncture as we discussed. Pending Studies at Discharge: No Stand-Alone Forms: Call Back Authorization, [facility], Smoking Cessation Medications and DC Order Prescriptions: New ketorolac 10 mg tablet 10 mg PO Q8H 3 Days Qty: 9 RF: 0 Continued amoxicillin 500 mg tablet 2,000 mg PO ONCE Qty: 4 RF: 2 albuterol sulfate [ProAir HFA] 90 mcg/actuation HFA aerosol inhaler See Rx Instructions .ROUTE .COMPLEX Qty: 8.5 RF: 1 Prolia 60 mg/mL syringe 60 mg SQ .COMPLEX RF: 0 meloxicam [Mobic] 15 mg tablet 15 mg PO DAILY Qty: 90 RF: 1 metoprolol tartrate 25 mg tablet 12.5 mg PO BID Qty: 180 RF: 1 cholecalciferol (vitamin D3) 4,000 unit capsule 4,000 units PO DAILY RF: 0 multivitamin Tablet 1 tab PO DAILY RF: 0 methotrexate (PF) 10 mg/0.2 mL Auto-Injector 1 dose subcut WK RF: 0 methylprednisolone [Medrol] 8 mg tablet 8 mg PO .TAPER UD RF: 0 Discharge Orders: Discharge Order (Routine); Ordered 11/03/19 Ordered By: Adrianna Smiley Admission Data Admit Date/Time: 11/02/19 22:37 Attending Provider: Adrianna Smiley Admit Provider: Deon Delgado Primary Care Provider: Joycelyn Daniels Other Providers: Eyal Allen Other Interventions: Discharge Summary Assessment (RN) Last Done: 11/03/19 10:55 DC Date/Time DO NOT enter until pt leaves facility: 11/03/19 12:45
--- NOTE | 2019-11-03 10:06 | Electrocardiogram Report ---
Test Reason : Blood Pressure : / mmHG Vent. Rate : 098 BPM Atrial Rate : 098 BPM P-R Int : 190 ms QRS Dur : 062 ms QT Int : 338 ms P-R-T Axes : 062 032 046 degrees QTc Int : 431 ms Normal sinus rhythm Right atrial enlargement Borderline ECG When compared with ECG of 29-AUG-2016 09:54, NM interval has decreased Vent. rate has increased BY 40 BPM T wave amplitude has decreased in Lateral leads Confirmed by Reji Cintron ([id number]) on 11/03/2019 10:06:26 AM Referred By: Joycelyn Daniels Confirmed By:Reji Cintron
--- NOTE | 2019-11-05 03:13 | Billing Data ---
Date of Service November 05, 2019 Coding Level of Care Code 73313 OBS Care - Level 3
== END 2019-11-03 12:45 | disposition home or self-care (01) ==
LOC: ED 16:36 → 2N 16:36 → SUATTDRO 22:37 → 2N 22:57

== ENCOUNTER 2020-07-05 06:58 | Observation (INO) ==
--- NOTE | 2020-06-06 13:35 | PAT Medication Instructions ---
Medication Instructions Date of Service June 06, 2020 Home Medications Medication Instructions Recorded meloxicam 15 mg tablet 15 mg PO DAILY #90 tab 06/01/19 metoprolol tartrate 25 mg tablet 12.5 mg PO BID #180 tab 06/01/19 albuterol sulfate 90 mcg/actuation See Rx Instructions .ROUTE 11/02/19 aerosol inhaler .COMPLEX #8.5 gram furosemide 20 mg tablet 20 mg PO DAILY PRN #10 tab 04/17/20 omeprazole 20 mg capsule,delayed 20 mg PO DAILY #90 cap 04/18/20 release omeprazole 40 mg capsule,delayed 40 mg PO DAILY #90 cap 05/01/20 release methotrexate (PF) 1 dose SUBCUT WK multivitamin 1 tab PO QAM denosumab 60 mg/mL subcutaneous syringe 60 mg SQ meloxicam 15 mg tablet 15 mg PO DAILY metoprolol tartrate 25 mg tablet 12.5 mg PO BID albuterol sulfate 90 mcg/actuation aerosol inhaler See Rx Instructions furosemide 20 mg tablet 20 mg PO DAILY PRN omeprazole 20 mg capsule,delayed release 20 mg PO DAILY omeprazole 40 mg capsule,delayed release 40 mg PO DAILY cholecalciferol (vitamin D3) [Vitamin D3] 50 mcg PO BID folic acid 1 mg PO UD Continue as directed denosumab 60 mg/mL subcutaneous syringe 60 mg SQ ASK your surgeon for instructions meloxicam 15 mg tablet 15 mg PO DAILY ASK your prescriber and surgeon methotrexate (PF) 1 dose SUBCUT WK DO NOT take the morning of surgery multivitamin 1 tab PO QAM furosemide 20 mg tablet 20 mg PO DAILY PRN cholecalciferol (vitamin D3) [Vitamin D3] 50 mcg PO BID folic acid 1 mg PO UD Take morning of surgery With a small sip of water, OTHERWISE NOTHING TO EAT OR DRINK AFTER MIDNIGHT: metoprolol tartrate 25 mg tablet 12.5 mg PO BID albuterol sulfate 90 mcg/actuation aerosol inhaler See Rx Instructions (use if needed; please bring with you to hospital day of surgery if possible) omeprazole Take evening before surgery metoprolol tartrate 25 mg tablet 12.5 mg PO BID albuterol sulfate 90 mcg/actuation aerosol inhaler See Rx Instructions (if needed) cholecalciferol (vitamin D3) [Vitamin D3] 50 mcg PO BID Other Notes If you have any questions please call us at [phone] or [phone] or [phone] or [phone]
--- NOTE | 2020-06-08 13:24 | Anesthesiology Consultation ---
Date of Service June 08, 2020 Assessment & Plan (1) Encounter for pre-operative examination: COVID Status: As of 06/08 assessment, patient denies travel to endemic area, known exposure/sick contacts, or symptoms of COVID19. Patient instructed that they and their household members must follow strict social distancing guidelines, wear a mask in public and avoid travel for 14 days prior to surgery. Preoperative COVID19 testing to be completed prior to surgery per surgeon's arra ngements. Patient made aware to self-isolate as much as possible between COVID testing and surgery. Chart Review Chart Review: Acceptable Risk for Surgery and Patient seen in Pre Admission Testing Teaching & Discussion Instructed NPO after midnight before surgery, except medications with 15 cc of water. Medication instructions provided according to the PAT guidelines. History Surgery Operation Date: 07/05/20 09:05 Proposed Procedures p Right Total Hip Replacement - Fernie Jones MD Height/Weight Height: 5 ft 6 in Weight: 68.039 kg Allergies Allergy/AdvReac Type Severity Reaction Status Date / Time Bactrim Allergy Severe anaphylaxis Verified 05/21/18 06:39 Sulfa (Sulfonamide Allergy Severe anaphylaxis Verified 06/01/20 13:17 Antibiotics) sulfamethoxazole Allergy Severe anaphylaxis Verified 06/01/20 13:17 trimethoprim Allergy Severe anaphylaxis Verified 06/01/20 13:17 acetaminophen Allergy Intermediate GI Verified 06/01/20 13:17 SYMPTOMS AND DIZZINESS lactose Allergy Intermediate gi upset Verified 06/01/20 13:17 with milk or milk products Medications Home Medications Medication Instructions Recorded Confirmed Last Taken methotrexate (PF) 1 dose SUBCUT WK 07/20/18 06/01/20 07/22/18 multivitamin 1 tab PO QAM 07/20/18 06/01/20 07/22/18 denosumab 60 mg/mL subcutaneous 60 mg SQ .COMPLEX ml 05/29/19 06/01/20 Unknown syringe meloxicam 15 mg tablet 15 mg PO DAILY #90 tab 06/01/19 06/01/20 Unknown metoprolol tartrate 25 mg tablet 12.5 mg PO BID #180 tab 06/01/19 06/01/20 Unknown albuterol sulfate 90 mcg/actuation See Rx Instructions .ROUTE 11/02/19 06/01/20 Unknown aerosol inhaler .COMPLEX #8.5 gram furosemide 20 mg tablet 20 mg PO DAILY PRN #10 tab 04/17/20 06/01/20 Unknown omeprazole 20 mg capsule,delayed 20 mg PO DAILY #90 cap 04/18/20 06/01/20 Unknown release omeprazole 40 mg capsule,delayed 40 mg PO DAILY #90 cap 05/01/20 06/01/20 Unknown release cholecalciferol (vitamin D3) 50 mcg PO BID 06/01/20 06/01/20 Unknown [Vitamin D3] folic acid 1 mg PO UD 06/01/20 06/01/20 Unknown Past Medical History Medical History Anemia HX OF Chronic obstructive pulmonary disease Albuterol 2 puffs every morning, no maintenance inhaler Dry eye syndrome Osteoarthritis Rheumatoid arthritis Spinal stenosis Exercise / Class Metabolic Activity II 4-5 Yardwork/Stairs/Walk up hill (Some mild VALLE with 1 FOS but does daily at home, no chest pain) Past Family History Family History Grandmother Diabetes Mother Heart disease Emphysema of lung Interstitial emphysema Hypertension Stroke Father Heart disease Emphysema of lung Sister Rheumatoid arthritis Grandmother (Maternal) Family history of diabetes mellitus Denies family history of Ovarian cancer Prostate cancer Crohn's disease Myocardial infarction Breast cancer Colorectal cancer Ulcerative colitis Past Surgical History Surgical History H/O exploratory laparotomy INTESTINAL SURGERY ([address] HIGGINS) History of bilateral tubal ligation History of cholecystectomy laparoscopic History of colonoscopy History of esophagogastroduodenoscopy (EGD) History of herniorrhaphy ABDOMINAL HERNIA History of repair of rotator cuff LEFT History of tooth extraction History of total knee replacement LEFT Past Anesthesia History No Hx of Anesthesia Complications and No Family Hx of Anesthesia Complications History of PONV No Hx of PONV and No Hx of Motion Sickness Social History Smoking Status: Never smoker Do You Dip or Chew Tobacco: No Hx Alcohol Use: No Alcohol type: wine alcohol intake frequency: holidays/special occasions only Hx Substance Use: No substance use type: does not use Review of Systems Pt denies any recent chest pain, shortness of breath, palpitations, cough, fever, URI, or uncontrolled acid reflux (it is controlled with PPI). Physical Exam Vital Signs BP: 119/81 P: 74bpm SPO2: 95% RA T: 99.1 F R: 16 ENMT Mouth: + dental restorations (gold L lower molar); no chipped teeth and no loose teeth Thyromental Distance: > or= 3.5 Finger Breadths Mallampati Class: I Neck normal visual inspection; neck extension not limited Respiratory normal respiratory effort Auscultation: lungs clear to auscultation bilaterally Cardiovascular Rate/Rhythm: regular rate and regular rhythm Heart Sounds: no murmur Vessels: no carotid bruit Extremities: + edema (B/L 2+ nonpitting, pt reports baseline) Musculoskeletal Spine: + kyphosis Testing Laboratory Results 06/08/20 13:45 PT 9.9 Seconds (9.0-12.0) 06/08/20 13:45 INR 0.9 (0.9-1.1) 06/08/20 13:45 APTT 24.0 Seconds (21.0-31.0) 06/08/20 13:45 Blood Type A Positive 06/08/20 13:45 Antibody Screen NEGATIVE 06/08/20 13:45 06/08/20 SODIUM: 140 POTASSIUM: 4.3 CHLORIDE: 108 CO2: 27 BUN: 15 CREATININE: 0.79 GLUCOSE: 94 Electrocardiogram Date: 11/02/19 Findings: + NSR @ (98bpm) Right atrial enlargement. Compared with EKG of 08/29/2016, OR interval has decreased, ventricular rate has increased by 40 bpm, T wave amplitude is decreased in lateral leads. Chest X-Ray Date: 11/02/19 IMPRESSION: Hiatal hernia. Trace fluid left base. No change from the prior study. Cervical Spine Date: 01/06/19 FINDINGS: There are multilevel degenerative changes. There is disc space narrowing most pronounced the C3-4 C4-5 and C5-C6 levels. There is a 1.5 mm of anterolisthesis of C3 on C4. There is facet joint arthropathy with mild foraminal narrowing most pronounced on the right at the C4-5 and C5-6 levels IMPRESSION: 1. No fractures or subluxations identified 2. Degenerative changes similar to the preceding study
[2020-06-08 14:10] LABS: Basophils # (auto) 0.02 K/uL (0-0.2); Basophils % (auto) 0.3 %; Eosinophils # (auto) 0.28 K/uL (0-0.5); Eosinophils % (auto) 4.4 %; Hematocrit (blood only) 42.4 % (37-47); Hemoglobin 14.4 g/dL (12.0-16.0); Immature Granulocytes # (auto) 0.01 K/uL (0.00-0.02); Immature Granulocytes % (auto) 0.2 %; Mean Corpuscular Hemoglobin 31.6 pg (25-34); Mean Corpuscular Volume 93.2 fL (80-100); Mean Platelet Volume 10.6 fL (7.4-10.4); Monocytes # (auto) 0.29 K/uL (0.11-0.59); Monocytes % (auto) 4.6 %; Neutrophils # (auto) 5.06 K/uL (1.4-6.5); Neutrophils % (auto) 79.5 %; Platelet Count 155 K/uL (130-400); RDW Coefficient of Variation 13.1 % (11.5-14.5); RDW Standard Deviation 44.4 fL (36.4-46.3); Red Blood Count 4.55 M/uL (4.2-5.4); White Blood Count 6.36 K/uL (4.8-10.8)
[2020-06-08 14:22] LABS: INR 0.9 (0.9-1.1); Partial Thromboplastin Ratio 0.9; Prothrombin Time 9.9 Seconds (9.0-12.0)
[~2020-07-05 06:58] MED LIST changes: +ACETAMINOPHEN 500 MG TAB PO SCH; -ALBU18002; -CALC500C70 PO; -DNSIS60 SQ; +FAMOTIDINE 20 MG TAB PO SCH; -FOLI1TAB8 PO; +GABAPENTIN 300 MG CAP PO SCH; +LR 500ML BOLUS, THEN 15ML/HR IV SCH; +LR 60ML/HR IV SCH; -MELO7.5T5 PO; -METH1INJ SQ; -METO25TA56 PO; +METOCLOPRAMIDE HCL 10 MG TABLET PO SCH; -MULT-506 PO; +TRANEXAMIC ACID 1,000 MG **IV Pre-op IV SCH; -VNTHFA/IN INH; -[UNRECOGNIZED DRUG - CODE]
[2020-07-05] MEDS ORDERED: BUPIVACAINE 0.5 % 5 MG/1 ML PF 10ML VIAL ONE (07:24)
[2020-07-05] MEDS ORDERED: PROPOFOL IV EMULSION 10 MG/ML 20 ML VIAL IV ONE (07:47)
[2020-07-05] MEDS ORDERED: MIDAZOLAM HCL 1 MG/ML 2ML VIAL ONE ×2 (07:47→10:06)
[2020-07-05] MEDS ORDERED: LIDOCAINE HCL 2% 2 ML VIAL/AMP(20MG/ML) INFIL ONE (07:47)
[2020-07-05] MEDS ORDERED: MoRPHine SULFATE PF 1 MG/ML 10 ML AMP/VIAL ONE (07:48)
[2020-07-05] MEDS ORDERED: BACITRACIN INJ 50,000 UNIT VIAL ONE (08:54)
[2020-07-05] MEDS ORDERED: CEFAZOLIN 2,000 MG/15 ML IV PUSH IV ONE (08:54)
[2020-07-05] MEDS ORDERED: EPINEPHrine INJ 1 MG/ML AMP ONE (08:55)
[2020-07-05] MEDS ORDERED: BUPIVACAINE 0.5 % 5 MG/1 ML MPF 30ML VIAL ONE (08:55)
--- NOTE | 2020-07-05 09:17 | History & Physical Bridge Note ---
Date of Service July 05, 2020 History & Physical Bridge Note I have examined the patient, reviewed the History & Physical and in the interval since the performance of the History & Physical I have noted the following changes of clinical significance: no changes noted
[2020-07-05] MEDS ORDERED: ATROPINE SULFATE 0.1 MG/ML 10ML SYR IV PRN (09:29)
[2020-07-05] MEDS ORDERED: ePHEDrine sulfate 50 MG/ML AMP IV PRN ×2 (09:29→11:33)
[2020-07-05] MEDS ORDERED: ePHEDrine sulfate 50 MG/ML AMP ONE (10:11)
--- NOTE | 2020-07-05 10:54 | Post Operative Brief Note ---
PG Immediate Post Op with CF Date of Surgery July 05, 2020 Pre & Post Diagnosis Operation Date: 07/05/20 09:05 Pre-Op Diagnosis: Right Hip Degenerative Joint Disease Post-Op Diagnosis: Right Hip Degenerative Joint Disease; Right Hip CHronic Abductor Avulsion I identified the patient and participated in the time-out.: Yes Procedure Operation Date: 07/05/20 09:05 Actual Procedures p Right Total Hip Replacement, Uncemented; Repair of Right Hip Abductor Avulsion(Right) - Fernie Jones MD Surgeon Fernie Jones MD Wood Turning Lathe Operator Michael, [facility] Estimated Blood Loss 200 Findings Consistent with Post-Op Diagnosis Fluids 1200 cc Specimens Specimen Description: Permanent Specimen A: Right femoral head Drains Moise Catheter Anesthesia Type Spinal MAC Complications none Disposition Accompanied Patient To Recovery: Yes Disposition: Recovery Room
--- NOTE | 2020-07-05 11:16 | Operative Report ---
Post Operative Report Pre & Post Diagnosis Operation Date: 07/05/20 09:05 Pre-Op Diagnosis: Right Hip Degenerative Joint Disease Post-Op Diagnosis: Right Hip Degenerative Joint Disease; right chronic hip abductor avulsion. I identified the patient and participated in the time-out.: Yes Procedure Operation Date: 07/05/20 09:05 Actual Procedures p Right Total Hip Replacement, Uncemented; Repair of Right Hip Abductor Avulsion(Right) - Fernie Jones MD Surgeon Fernie Jones MD Industrial Engineering Technician Michael, PAC Estimated Blood Loss 200 Findings Consistent with Post-Op Diagnosis Operative findings revealed advanced right hip DJD with grade 4 [id number] disease with a erosion of the femoral head. She had some small anterior acetabular osteophytes. Fairly large hip joint effusion with some moderate synovitis. She had a chronic hip abductor avulsion of both the superior and anterior hip abductors. Fluids 1200 cc. Specimens Right femoral head sent for pathology. Drains None. Anesthesia Type Spinal MAC Complications none Disposition Accompanied Patient To Recovery: Yes Disposition: Recovery Room Description of Procedure Operative implants consist of: 1. Biomet G7 size 50 mm acetabular shell. 2. Biomet size 6.5 cancellus acetabular screws 1 of 35 mm length and 1 of 20 mm length. 3. [place] hole eliminator. 4. Highly cross-linked polyethylene liner with a 50 mm outer diameter and 36 mm inner diameter. 5. Estefania Karaya size 10 KLA femoral stem. 6. +1.5/36 mm ceramic articular ball. 7. Biomet 2.9 juggernaut suture anchor. Patient was taken to the operating identified bite and placed on the operating table supine position. All contractors were properly padded. IV antibiotics arrived by anesthesia team. A spinal anesthetic had been implemented in the holding area. Moise catheter was placed in sterile fashion. The patient then placed in the left lateral cubitus position. An axillary roll was placed. A Stulberg hip positioner was used for positioning. The right hip and leg were then prepped and draped in usual sterile fashion. A posterior lateral approach of the right hip was then performed to a curvilinear incision centered over the greater trochanter. Sharp dissection was got through subcutaneous is down above the IT band gluteal fascia the IT band gluteal fascia were incised longitudinally in line with skin incision. Upon visualizing the trochanter was clear avulsion of the anterior and superior hip abductors. The piriformis and external rotators along with the posterior hip joint capsule were then released from the posterior aspect of the hip as a single layer. Great care was taken throughout the procedure protect sciatic nerve at all times. Hip was internally rotated and dislocated. Femoral neck osteotomy cut was made with Final Cut about 9 mm above the lesser trochanter. The femur was retracted anteriorly. Attention drawn the acetabulum. The acetabular labrum was excised. The pulmonary fat was excised. Sequential reaming the acetabular was then performed begin with size 43 and progressing up to a 49. I did reamed with a 50 reamer and then placed a 50 mm Biomet G7 acetabular shell in about 40 degrees lateral opening and 20 degrees of anteversion. Small anterior osteophyte was removed. Two 6.5 cancellus acetab ular screws were placed. A trial liner was placed and attention drawn the femur. The proximal femur was entered with a cookie-cutter followed by canal finder. I then broached begin the size 8 and progressing up to 10. She had a very good and surprisingly strong cancellus envelope and therefore elected to place an uncemented stem. Calcar reamer was used smooth off the calcar. I then trialed the hip. The +5 articular ball was fully stable but just seemed a little bit tight considering her hip abductor avulsion I was concerned that we did tighten and lengthen her too much. Therefore we elected to place a +15 articular ball. Hip was fully stable in full extension and external rotation flexion to 9 degrees into rotation over [address] I elect to place these implants. All trial implants were removed. An apex hole finger waver was placed. Highly cross-linked polyethylene liner was placed. A Estefania size 10 KLA femoral stem was impacted in position. A +1.5/36 mm ceramic articular ball was placed. Hip was located once again found to be stable. Attention drawn toward closing. The wound was irrigated cups ounce pulsatile lavage solution. I did inject locally with about 50 cc of half percent Marcaine with epinephrine. The posterior capsule and external rotators were then repaired through drill holes in the greater trochanter with #2 Tycron suture. I then proceeded with the abductor repair. I did place these posterior Tycron sutures on free needles and fed them through the superior hip abductors and then tied them down to the greater trochanter after I started up with a cautery. I then placed a single juggernaut anchor anteriorly with 2 sutures on it and placed these through the anterior hip abductors. These were then tied back to the sutures to the posterior capsule. This provided nice approximation of the hip abductors. We did scar up the greater trochanter and try to get some healing up. The IT band gluteal fascia then closed #1 PDS suture in running fashion the subcutaneous tissue then closed with 2 layers the deep layer #1 Vicryl suture and subcutaneous tissues with 2-0 Dexon suture in a buried interrupted fashion. Skin was closed skin deedee. Legs then cleaned dried a sterile dressed composed Xeroform, 4 x 4's, ABD pad, foam tape were applied. The patient then transferred to the recovery room in stable condition. The patient tolerated the procedure well and there are no complications. Nacho Rodriguez, my physician speech language pathology assistant, was present for the entire procedure. His assistance was essential and required for appropriate patient positioning, prepping and draping, surgical exposure, performing the technical details of the operation, placement the implants, closure of the wound, and placement of the sterile bandage. I attest to the content of the Intraoperative Record and any orders documented therein. Any exceptions are noted below.
[2020-07-05] MEDS ORDERED: PROMETHAZINE HCL 25 MG in SODIUM CHLORIDE 0.9% 50 ML IV PRN (11:33)
[2020-07-05] MEDS ORDERED: NALOXONE HCL 1 MG in SODIUM CHLORIDE 0.9% 1000ML 1,000 ML IV PRN (11:33)
[2020-07-05] MEDS ORDERED: NALOXONE HCL 0.08 MG in SYRINGE 1.8 ML IV PRN (11:33)
[2020-07-05] MEDS ORDERED: ONDANSETRON INJ 2 MG/ML 2 ML VIAL IV PRN ×2 (11:33→12:48)
[2020-07-05] MEDS ORDERED: NALOXONE HCL 0.4 MG/1 ML VIAL/CARP IV PRN ×2 (11:33→12:48)
[2020-07-05] MEDS ORDERED: MoRPHine SULFATE PF 1 MG/ML 10 ML AMP/VIAL INT SPINAL ONE (11:33)
[2020-07-05] MEDS ORDERED: DiphenhydrAMINE HCL 50 MG/ML VIAL IV PRN (11:33)
[2020-07-05] MEDS ORDERED: LACTATED RINGER'S 500 ML IV PRN (11:33)
[2020-07-05] MEDS ORDERED: NO NARCOTICS OR SEDATIVES SCH (11:45)
[2020-07-05] MEDS ORDERED: SODIUM CHLORIDE 0.9% 1000ML 1,000 ML IV SCH (11:45)
--- NOTE | 2020-07-05 11:51 | XRay Report ---
AP PELVIS, CROSSTABLE LATERAL RIGHT HIP History: Right total hip arthroplasty. Degenerative arthritis. Postop. FINDINGS: The patient is status post a right total hip arthroplasty. The hardware is intact. No fract ure or dislocation. Skin deedee are in place. IMPRESSION: Right total hip arthroplasty. No evidence for hardware complication ACT 112: Negative or not required by law. Electronically signed by: Danny Mcgovern M.D. 07/05/2020 11:50 AM
--- NOTE | 2020-07-05 11:58 | Anesthesiology Progress Note ---
Date of Service July 05, 2020 Anesthesia Post Procedure Vital Signs Vital Signs: Temp Pulse Resp BP Pulse Ox 07/05/20 11:45 69 15 96/49 L 95 07/05/20 11:35 69 20 107/54 L 97 07/05/20 11:25 70 15 93/51 L 95 07/05/20 11:15 68 15 98/54 L 98 07/05/20 11:05 70 15 96/54 L 99 07/05/20 10:56 36 C L 73 15 87/51 L 95 07/05/20 07:44 37.5 C 18 152/68 H 98 Transfer of Care Handoff Completed per policy Notes Mental Status: alert / awake / arousable Patient Amnestic to Procedure: Yes Nausea / Vomiting: adequately controlled Pain: adequately controlled Airway Patency, RR, SpO2: stable & adequate BP & HR: stable & adequate Hydration State: stable & adequate Neuraxial Anesthesia: was administered and sensory block is resolving Anesthetic Complications: no major complications apparent
[2020-07-05] MEDS ORDERED: ALBUTEROL HFA 8 GM INHALER INH PRN (12:48)
[2020-07-05] MEDS ORDERED: bisacodyL 10 MG SUPP PR PRN (12:48)
[2020-07-05] MEDS ORDERED: METOCLOPRAMIDE HCL INJ 5 MG/ML 2 ML VIAL IV PRN (12:48)
[2020-07-05] MEDS ORDERED: FUROSEMIDE 20 MG TAB PO PRN (12:48)
[2020-07-05] MEDS ORDERED: ALUMINUM/MAGNESIUM SUSP 30 ML UDC PO PRN (12:48)
[2020-07-05] MEDS ORDERED: TRAMADOL HCL 50 MG TABLET PO PRN (12:48)
[2020-07-05] MEDS ORDERED: MAGNESIUM HYDROXIDE SUSP 30 ML UDC PO PRN (12:48)
[2020-07-05] MEDS: SODIUM CHLORIDE 0.9% 1000ML 1,000 ML IV SCH ×2 (13:45→23:17)
[2020-07-05] MEDS: KETOROLAC TROMETHAMINE 15 MG/ML VIAL IV SCH ×2 (13:46→21:19)
[2020-07-05] MEDS: CEFAZOLIN 1000MG 1,000 MG/7.5 ML SYR IV SCH (16:22)
[2020-07-05] MEDS: FERROUS GLUCONATE 324 MG TAB PO SCH (16:23)
[2020-07-05] MEDS: ASCORBIC ACID 500 MG TAB PO SCH (16:23)
[2020-07-05] MEDS ORDERED: TRANEXAMIC ACID / 0.7% NACL 1,000 MG/100 ML BAG IV SCH (17:00)
[2020-07-05] MEDS: DOCUSATE SODIUM 100 MG CAP PO SCH (21:19)
[2020-07-05] MEDS: SENNA 8.6 MG TAB PO SCH (21:20)
[2020-07-05] MEDS: ASPIRIN 81 MG ECTAB PO SCH (21:20)
[2020-07-05] MEDS: CHOLECALCIFEROL 1,000 UNITS 25 MCG TAB PO SCH (21:21)
[2020-07-05] MEDS: METOPROLOL TARTRATE 25 MG TAB PO SCH (21:21)
[2020-07-06] MEDS: KETOROLAC TROMETHAMINE 15 MG/ML VIAL IV SCH ×4 (01:54→20:27)
[2020-07-06] MEDS: CEFAZOLIN 1000MG 1,000 MG/7.5 ML SYR IV SCH (01:55)
[2020-07-06] MEDS ORDERED: ONDANSETRON INJ 2 MG/ML 2 ML VIAL IV PRN (05:33)
[2020-07-06] MEDS ORDERED: HYDROmorphone INJ 0.5 MG/0.5 ML SYR IV PRN (05:33)
[2020-07-06] MEDS ORDERED: DC INTRASPINAL MORPHINE ONE (05:33)
[2020-07-06 06:20] LABS: Basophils # (auto) 0.02 K/uL (0-0.2); Basophils % (auto) 0.4 %; Eosinophils # (auto) 0.15 K/uL (0-0.5); Eosinophils % (auto) 2.7 %; Hematocrit (blood only) 33.2 % (37-47); Hemoglobin 10.5 g/dL (12.0-16.0); Lymphocytes # (auto) 0.75 K/uL (1.2-3.4); Lymphocytes % (auto) 13.4 %; Mean Corpuscular Hemoglobin 29.9 pg (25-34); Mean Corpuscular Hgb Conc 31.6 g/dL (32-36); Mean Corpuscular Volume 94.6 fL (80-100); Mean Platelet Volume 10.5 fL (7.4-10.4); Monocytes # (auto) 0.35 K/uL (0.11-0.59); Monocytes % (auto) 6.3 %; Neutrophils # (auto) 4.32 K/uL (1.4-6.5); Neutrophils % (auto) 77.2 %; Platelet Count 104 K/uL (130-400); RDW Coefficient of Variation 13.1 % (11.5-14.5); RDW Standard Deviation 45.2 fL (36.4-46.3); Red Blood Count 3.51 M/uL (4.2-5.4); White Blood Count 5.59 K/uL (4.8-10.8)
[2020-07-06 06:56] LABS: Calcium 7.6 mg/dl (8.5-10.1); Creatinine Clr Calc Pharmacy 85.3 ml/min; Est GFR (African American) 107.8; Est GFR (Non-African American) 93.1; Potassium 3.7 mmol/L (3.5-5.1)
[2020-07-06] MEDS: PANTOprazole 40 MG TAB PO SCH (08:13)
--- NOTE | 2020-07-06 08:17 | Anesthesiology Progress Note ---
Date of Service July 06, 2020 Anesthesia Post Procedure Vital Signs Vital Signs: Temp Pulse Pulse Pulse Resp BP Pulse Ox 07/06/20 07:18 37.0 C 86 16 105/61 98 07/06/20 03:52 16 97 07/06/20 03:07 36.9 C 87 16 103/65 96 07/06/20 03:00 16 98 07/06/20 02:02 14 97 07/06/20 00:45 14 96 07/05/20 23:45 16 94 07/05/20 22:57 36.9 C 75 16 111/72 98 07/05/20 22:48 16 96 07/05/20 21:55 15 96 07/05/20 21:15 83 124/69 94 07/05/20 20:50 16 98 07/05/20 19:50 16 99 07/05/20 19:29 36.6 C 78 16 118/64 96 07/05/20 18:47 16 100 07/05/20 17:41 15 97 07/05/20 16:42 16 100 07/05/20 15:50 16 94 07/05/20 15:37 36.3 C L 71 16 92/59 L 99 07/05/20 14:47 16 98 07/05/20 14:26 36.4 C L 71 15 107/59 L 99 07/05/20 13:35 68 16 101/53 L 98 07/05/20 13:30 15 98 07/05/20 12:35 36.3 C L 71 16 93/58 L 94 07/05/20 12:20 36.3 C L 68 16 97/49 L 93 07/05/20 12:15 70 14 98/48 L 94 07/05/20 12:05 68 14 91/53 L 97 07/05/20 11:55 35.5 C L 66 17 91/45 L 94 07/05/20 11:45 69 15 96/49 L 95 07/05/20 11:35 69 20 107/54 L 97 07/05/20 11:25 70 15 93/51 L 95 07/05/20 11:15 68 15 98/54 L 98 07/05/20 11:05 70 15 96/54 L 99 07/05/20 10:56 36 C L 73 15 87/51 L 95 Notes Mental Status: alert / awake / arousable Nausea / Vomiting: adequately controlled Pain: adequately controlled Airway Patency, RR, SpO2: stable & adequate BP & HR: stable & adequate Hydration State: stable & adequate Neuraxial Anesthesia: was administered and sensory block resolved Anesthetic Complications: no major complications apparent
[2020-07-06] MEDS: ASCORBIC ACID 500 MG TAB PO SCH ×2 (08:25→16:10)
[2020-07-06] MEDS: TRAMADOL HCL 50 MG TABLET PO PRN ×2 (08:25→14:29)
[2020-07-06] MEDS: METOPROLOL TARTRATE 25 MG TAB PO SCH ×2 (08:25→20:38)
[2020-07-06] MEDS: DOCUSATE SODIUM 100 MG CAP PO SCH ×2 (08:25→20:39)
[2020-07-06] MEDS: MULTIVITAMIN TAB PO SCH (08:26)
[2020-07-06] MEDS: FOLIC ACID 1 MG TAB PO SCH (08:26)
[2020-07-06] MEDS: FERROUS GLUCONATE 324 MG TAB PO SCH ×2 (08:26→16:10)
[2020-07-06] MEDS: ASPIRIN 81 MG ECTAB PO SCH ×2 (08:26→20:39)
[2020-07-06] MEDS: CHOLECALCIFEROL 1,000 UNITS 25 MCG TAB PO SCH ×2 (08:26→20:38)
--- NOTE | 2020-07-06 08:48 | Progress Notes ---
DATE: 07/06/2020 SUBJECTIVE: A 75-year-old female postop day 1 from right hip replacement. She is doing reasonably well. She walked little bit last evening. Pain has been controlled. No chest pain or shortness of breath. Not feeling dizzy or lightheaded. OBJECTIVE: VITAL SIGNS: Temperature 37.0. Vital signs stable. GENERAL: Physical examination shows a pleasant elderly female. She is lying in bed, looks reasonably comfortable. EXTREMITIES: Examination of the right hip and leg reveals the leg to be well aligned. Dressing is clean, dry and intact. She can dorsiflex and plantarflex her foot appropriately. She is neurologically intact. LABORATORY DATA: Hemoglobin 10.5. Hematocrit 33.2. Electrolytes stable. ASSESSMENT: A 75-year-old female postop day 1 from right hip replacement, doing reasonably well. Pain is controlled. She is neurologically intact. Hip is located. PLAN: 1. DVT prophylaxis include thigh-high TEDs, SCDs and aspirin twice a day. 2. PT/OT. Weight bear as tolerated. Right total knee protocol. 3. Pain control, doing okay with current pain regimen. 4. Disposition: Plan to discharge to home with some home health once adequately recovered and medically stable.
[2020-07-06] MEDS ORDERED: MULTIVITAMIN TAB PO SCH (09:00)
[2020-07-06] MEDS ORDERED: OXYCODONE HCL IR 5 MG TAB (IMMEDIATE RELEASE) PO PRN (16:34)
[2020-07-06] MEDS: SENNA 8.6 MG TAB PO SCH (20:38)
[2020-07-07] MEDS: KETOROLAC TROMETHAMINE 15 MG/ML VIAL IV SCH ×2 (02:06→07:49)
[2020-07-07] MEDS: PANTOprazole 40 MG TAB PO SCH (07:44)
[2020-07-07] MEDS: FOLIC ACID 1 MG TAB PO SCH (07:44)
[2020-07-07] MEDS: METOPROLOL TARTRATE 25 MG TAB PO SCH (07:48)
[2020-07-07] MEDS: ASPIRIN 81 MG ECTAB PO SCH (07:48)
[2020-07-07] MEDS: MULTIVITAMIN TAB PO SCH (07:48)
[2020-07-07] MEDS: DOCUSATE SODIUM 100 MG CAP PO SCH (07:48)
[2020-07-07] MEDS: FERROUS GLUCONATE 324 MG TAB PO SCH (07:48)
[2020-07-07] MEDS: ASCORBIC ACID 500 MG TAB PO SCH (07:48)
[2020-07-07] MEDS: CHOLECALCIFEROL 1,000 UNITS 25 MCG TAB PO SCH (07:48)
--- NOTE | 2020-07-07 08:57 | Progress Notes ---
DATE: 07/07/2020 SUBJECTIVE: A 75-year-old female postop day 2 from right hip replacement. She is doing pretty well. Certainly requiring some pain medicine. No chest pain or shortness of breath. Not feeling dizzy or lightheaded. OBJECTIVE: VITAL SIGNS: Temperature 36.8. Vital signs stable. GENERAL: Shows a pleasant, middle-aged female. She is lying in bed, looks pretty comfortable this morning. EXTREMITIES: Examination of the right hip reveals the dressing to be clean, dry and intact. Thigh is soft and supple. Leg lengths are equal. She is neurologically intact. ASSESSMENT: A 75-year-old female postop day 2 from a right hip replacement, doing reasonably well. Pain is controlled. Hip is located. PLAN: 1. DVT prophylaxis including thigh-high TEDs, SCDs, and aspirin twice a day. 2. PT/OT. Weight bear as tolerated. Right total hip protocol. 3. Pain control, doing pretty well with current pain regimen. 4. Disposition: Plan to discharge to home with some home health later today.
--- NOTE | 2020-07-12 15:44 | Discharge Summary ---
Date of Service July 12, 2020 Admission HPI Per Admitting Provider Documented in the H & P Admission Exam (Per Admitting) Constitutional Documented in the H & P Discharge Data Consultations 07/06/20 08:00 Consult Case Management - Discharge Planning Routine Procedures Performed Operation Date: 07/05/20 09:05 Actual Procedures p Right Total Hip Replacement, Uncemented; Repair of Right Hip Abductor Avulsion(Right) - Fernie Jones MD Hospital Course (1) Status post total hip replacement, right: This patient is a 75 year old female admitted on 07/05/20 and underwent total hip arthroplasty. She tolerated the procedure well and there were no complications. Transferred to the PACU post op and later to the orthopedic floor for further care. She was given ancef for antibiotic prophylaxis. She was also given CAMI stockings, SCDs, and aspirin for DVT prophylaxis. Hemoglobin, hematocrit, and vital signs were monitored during her hospital stay and remained stable. Did not require any blood transfusions. There were no complications during her hospital stay. By post op day #2 the patient was tolerating a regular diet, pain was reasonably controlled with oral pain medicine, and she was participating in physical therapy. On post op day #2 the patient was discharged home and set up with home health care. She was given printed discharge instructions including prescriptions for aspirin and oxycodone. Continue physical therapy, weight bearing as tolerated. Continue CAMI stockings. Total hip precautions. Follow up approximately 2 weeks post op or sooner if there are problems or concerns. Coding Level of Care Code None Diagnoses Status post total hip replacement, right Z96.641
== END 2020-07-07 11:16 | disposition home health service (06) ==
LOC: ASU 06:58 → 3E 06:58